=== PATIENT | female | born 1985 | race Caucasian/White ===

== ENCOUNTER 2018-03-23 13:01 | Inpatient (IN) | payer MEDICAID ==
[2018-03-23] MEDS: BETAMET NA PHOS/AC(6 MG/ML) 5ML INJ IM (14:10)
[2018-03-23] MEDS: LACTATED RINGER'S 1,000 ML IV (14:32)
[2018-03-23] MEDS: MAGNESIUM SULFATE 4 GM/100 ML 100 ML IV (15:05)
[2018-03-23] MEDS: MAGNESIUM SULFATE 20 GM/500 ML 500 ML IV (15:33)
[2018-03-24] MEDS: LACTATED RINGER'S 1,000 ML IV ×2 (01:32→14:50)
[2018-03-24] MEDS: MAGNESIUM SULFATE 20 GM/500 ML 500 ML IV ×3 (01:33→22:00)
[2018-03-24 01:38] LABS: MAGNESIUM 5.9 mg/dl (1.7-2.5)
[2018-03-24 07:27] LABS: MAGNESIUM 6.4 mg/dl (1.7-2.5)
[2018-03-24] MEDS: FERROUS SULFATE (EC) 325 MG TAB PO (09:43)
[2018-03-24] MEDS: PRENATAL VITAMIN PO (09:43)
[2018-03-24] MEDS: DOCUSATE SODIUM 100 MG CAP PO (09:43)
[2018-03-24] MEDS: BETAMET NA PHOS/AC(6 MG/ML) 5ML INJ IM (13:58)
[2018-03-24 14:58] LABS: MAGNESIUM 5.9 mg/dl (1.7-2.5)
[2018-03-24 18:32] LABS: MAGNESIUM 6.3 mg/dl (1.7-2.5)
[2018-03-24] MEDS: DIPHENHYDRAMINE 25 MG CAP PO (22:44)
[2018-03-25 01:50] LABS: MAGNESIUM 4.9 mg/dl (1.7-2.5)
[2018-03-25] MEDS: LACTATED RINGER'S 1,000 ML IV (04:14)
[2018-03-25] MEDS: PRENATAL VITAMIN PO (08:56)
[2018-03-25] MEDS: FERROUS SULFATE (EC) 325 MG TAB PO (08:56)
[2018-03-25] MEDS: DOCUSATE SODIUM 100 MG CAP PO (08:56)
[2018-03-25 12:20] LABS: MAGNESIUM 4.5 mg/dl (1.7-2.5)
[2018-03-25] MEDS: NIFEdipine 10 MG CAP PO (18:11)
[2018-03-25] MEDS: DIPHENHYDRAMINE 25 MG CAP PO (23:06)
[2018-03-26] MEDS: NIFEdipine 10 MG CAP PO ×3 (00:01→11:57)
[2018-03-26] MEDS: LACTATED RINGER'S 1,000 ML IV ×2 (04:25)
[2018-03-26] MEDS: DOCUSATE SODIUM 100 MG CAP PO (09:51)
[2018-03-26] MEDS: PRENATAL VITAMIN PO (09:51)
[2018-03-26] MEDS: FERROUS SULFATE (EC) 325 MG TAB PO (09:51)
[2018-03-26] MEDS ORDERED: ACETAMINOPHEN 325 MG TAB PO (17:30)
== END 2018-03-26 17:38 | disposition home or self-care (01) | DRG 778 ==
LOC: L-D 13:01 → PP1 03-25 20:10 → L-D 16:22
PROVIDERS: Obstetrics & Gynecology
DX: O60.03 Preterm labor without delivery, third trimester (principal); O26.879 Cervical shortening, unspecified trimester; Z3A.28 28 weeks gestation of pregnancy
CPT/HCPCS: 76816; 76817; 83735

== ENCOUNTER 2018-05-08 09:27 | Emergency (ER) | payer MEDICAID ==
[2018-05-08] MEDS: ACETAMINOPHEN 500 MG TAB PO (10:13)
== END 2018-05-08 10:27 | disposition home or self-care (01) ==
LOC: FTE 09:27
DX: O9A.213 Injury, poisoning and certain other consequences of external causes complicating pregnancy, third trimester (principal); S80.211A Abrasion, right knee, initial encounter; W01.0XXA Fall on same level from slipping, tripping and stumbling without subsequent striking against object, initial encounter; Y92.9 Unspecified place or not applicable; Z3A.34 34 weeks gestation of pregnancy
CPT/HCPCS: 99282; Z7502

== ENCOUNTER 2018-05-08 10:41 | Outpatient (CLI) | payer MEDICAID | END 2018-05-08 12:25 | disposition home or self-care (01) | LOC: OBT 10:41 → L-D 10:41 → OBT 12:25 | DX: O9A.213 Injury, poisoning and certain other consequences of external causes complicating pregnancy, third trimester (principal); S89.91XA Unspecified injury of right lower leg, initial encounter; Z3A.34 34 weeks gestation of pregnancy; W18.30XA Fall on same level, unspecified, initial encounter; Y93.89 Activity, other specified; Y92.89 Other specified places as the place of occurrence of the external cause; Y99.8 Other external cause status | CPT/HCPCS: 76818 ==

== ENCOUNTER 2018-06-13 10:08 | Inpatient (IN) | payer MEDICAID ==
[2018-06-13 11:54] LABS: ADD MAN DIFF? NO
[2018-06-13 11:59] LABS: WHITE BLOOD COUNT 11.3 10^3/ul (4.8-10.8)
[2018-06-13 11:59] LABS: BASOPHILS % 0.4 % (0.0-2.0); EOSINOPHILS # 0.1 10^3/ul (0.0-0.5); EOSINOPHILS % 0.4 % (0.0-7.0); HEMATOCRIT 38.2 % (37.0-47.0); HEMOGLOBIN 12.7 g/dl (12.0-16.0); LYMPHOCYTES # 2.1 10^3/ul (0.8-2.9); LYMPHOCYTES % 18.3 % (15.0-51.0); MEAN CORPUSCULAR HEMOGLOBIN 29.1 pg (29.0-33.0); MEAN CORPUSCULAR HGB CONC 33.2 g/dl (32.0-37.0); MEAN CORPUSCULAR VOLUME 87.6 fl (82.0-101.0); MEAN PLATELET VOLUME 10.8 fl (7.4-10.4); MONOCYTE # 0.6 10^3/ul (0.3-0.9); MONOCYTES % 5.1 % (0.0-11.0); NEUTROPHIL # 8.5 10^3/ul (1.6-7.5); NEUTROPHILS % 75.2 % (39.0-77.0); PLATELET COUNT 289 10^3/UL (140-415); RED BLOOD COUNT 4.36 10^6/ul (4.20-5.40); RED CELL DISTRIBUTION WIDTH 14.9 % (11.5-14.5)
[2018-06-13] MEDS ORDERED: METHYLERGONOVINE 0.2 MG INJ IM (12:00)
[2018-06-13] MEDS ORDERED: IBUPROFEN 600 MG TAB PO (12:00)
[2018-06-13] MEDS ORDERED: CARBOPROST 250 MCG INJ IM (12:00)
[2018-06-13] MEDS ORDERED: MISOPROSTOL 200 MCG TAB PR (12:00)
[2018-06-13] MEDS ORDERED: OXYTOCIN 30 UNITS/LR 500 ML IV ×2 (12:00)
[2018-06-13 12:20] LABS: INR 0.83; PROTIME 11.5 Sec (11.9-14.9); PT RATIO 0.9
[2018-06-13 12:21] LABS: PARTIAL THROMBOPLASTIN TIME 25.8 Sec (23.0-35.0)
[2018-06-13 12:59] LABS: HEPATITIS B SURFACE ANTIGEN NEGATIVE (NEGATIVE)
[2018-06-13 16:36] LABS: RAPID PLASMA REAGIN NONREACTIVE (NR)
[2018-06-13] MEDS: LACTATED RINGER'S 1,000 ML IV ×3 (18:39→23:02)
[2018-06-13 21:20] LABS: HIV 1&2 ANTIBODY NEGATIVE (NEGATIVE)
[2018-06-13] MEDS ORDERED: ONDANSETRON 4 MG INJ IV (22:30)
[2018-06-13] MEDS ORDERED: NALOXONE (0.4 MG/ML) INJ IV (22:30)
[2018-06-13] MEDS ORDERED: KETOROLAC 30 MG INJ IV (22:30)
[2018-06-13] MEDS ORDERED: DIPHENHYDRAMINE 50 MG INJ IV (22:30)
[2018-06-13] MEDS ORDERED: HYDROmorphONE 0.5 MG/0.5 ML SYG IV ×2 (22:30)
[2018-06-14] MEDS: LACTATED RINGER'S 1,000 ML IV ×3 (01:26→12:26)
[2018-06-14] MEDS: OXYTOCIN 30 UNITS/LR 500 ML IV ×4 (01:27→21:09)
[2018-06-14] MEDS: FENTAnyl 2MCG/ML-ROPIV 0.2% 100 ML BAG EPI ×2 (01:27→09:21)
[2018-06-14] MEDS: DEXTROSE 5%-LR 1,000 ML IV (05:17)
[2018-06-14] MEDS ORDERED: LIDOCAINE 1% (MPF) 30 ML INJ (10:21)
[2018-06-14] MEDS ORDERED: MINERAL OIL LIGHT 10 ML VIAL (10:44)
[2018-06-14] MEDS: MINERAL OIL LIGHT 10 ML VIAL TOP (11:00)
[2018-06-14] MEDS ORDERED: BUTORPHANOL 2 MG INJ (13:22)
[2018-06-14] MEDS: BUTORPHANOL 2 MG INJ IV (13:36)
[2018-06-14] MEDS: LIDOCAINE 1% (MPF) 30 ML INJ INJ (13:37)
[2018-06-14] MEDS: ACETAMINOPHEN 1000MG/100ML IV 100 ML IVPB (14:00)
[2018-06-14] MEDS ORDERED: ONDANSETRON 4 MG INJ IV (16:00)
[2018-06-14] MEDS ORDERED: ACETAMINOPHEN 325 MG TAB PO (16:00)
[2018-06-14] MEDS ORDERED: HYDROCODONE/APAP (5/325) TAB PO ×2 (16:00)
[2018-06-14] MEDS ORDERED: OXYCODONE/ASPIRIN (4.88/325) TAB PO (16:00)
[2018-06-14] MEDS: LANOLIN 7 GM TUBE TOP (16:22)
[2018-06-14] MEDS: WITCH HAZEL/GLYCERIN PAD PR (16:23)
[2018-06-14] MEDS: BENZOCAINE 20% 56 ML SPRAY TOP (16:23)
[2018-06-14] MEDS: OXYCODONE/ASPIRIN (4.88/325) TAB PO (16:25)
[2018-06-14] MEDS: IBUPROFEN 600 MG TAB PO (18:36)
[2018-06-14] MEDS: SENNA/DOCUSATE NA (8.6MG/50MG) TAB PO (21:08)
[2018-06-15] MEDS: IBUPROFEN 600 MG TAB PO ×4 (00:19→17:20)
[2018-06-15 08:42] LABS: ADD MAN DIFF? NO
[2018-06-15 08:49] LABS: BASOPHILS % 0.2 % (0.0-2.0); EOSINOPHILS # 0.1 10^3/ul (0.0-0.5); EOSINOPHILS % 0.5 % (0.0-7.0); HEMOGLOBIN 9.3 g/dl (12.0-16.0); LYMPHOCYTES # 2.1 10^3/ul (0.8-2.9); MEAN CORPUSCULAR HEMOGLOBIN 29.5 pg (29.0-33.0); MEAN CORPUSCULAR HGB CONC 33.2 g/dl (32.0-37.0); MEAN CORPUSCULAR VOLUME 88.9 fl (82.0-101.0); MEAN PLATELET VOLUME 11.3 fl (7.4-10.4); MONOCYTE # 0.9 10^3/ul (0.3-0.9); MONOCYTES % 5.1 % (0.0-11.0); NEUTROPHIL # 14.5 10^3/ul (1.6-7.5); NEUTROPHILS % 81.5 % (39.0-77.0); PLATELET COUNT 203 10^3/UL (140-415); RED BLOOD COUNT 3.15 10^6/ul (4.20-5.40); RED CELL DISTRIBUTION WIDTH 15.2 % (11.5-14.5)
[2018-06-15 08:49] LABS: WHITE BLOOD COUNT 17.8 10^3/ul (4.8-10.8)
[2018-06-15 09:21] LABS: RUBELLA ANTIBODY - IGM <20.00 AU/mL
[2018-06-15 10:06] LABS: RUBELLA ANTIBODY - IGG 7.48 index
[2018-06-15] MEDS: SENNA/DOCUSATE NA (8.6MG/50MG) TAB PO ×2 (10:55→22:16)
[2018-06-15] MEDS: OXYCODONE/ASPIRIN (4.88/325) TAB PO ×2 (11:03→22:24)
[2018-06-16] MEDS: IBUPROFEN 600 MG TAB PO ×3 (00:35→12:13)
[2018-06-16] MEDS: MEASLES,MUMPS,RUBELLA VACCINE INJ SC* (09:00)
[2018-06-16] MEDS: SENNA/DOCUSATE NA (8.6MG/50MG) TAB PO (09:01)
[2018-06-16] MEDS: BENZOCAINE 20% 56 ML SPRAY TOP (12:19)
[2018-06-16] MEDS: WITCH HAZEL/GLYCERIN PAD PR (12:19)
== END 2018-06-16 15:25 | disposition home or self-care (01) | DRG 807 ==
LOC: OBT 10:08 → PP1 06-14 15:42 → L-D 10:14 → OBT 11:28 → L-D 11:20
PROVIDERS: Obstetrics & Gynecology
PROC: 10E0XZZ Delivery of Products of Conception, External Approach (ICD-10-PCS; principal; 2018-06-13)
PROC: 0HQ9XZZ Repair Perineum Skin, External Approach (ICD-10-PCS; 2018-06-13)
PROC: 3E033VJ Introduction of Other Hormone into Peripheral Vein, Percutaneous Approach (ICD-10-PCS; 2018-06-13)
DX: O69.81X0 Labor and delivery complicated by cord around neck, without compression, not applicable or unspecified (principal); Z37.0 Single live birth; O70.0 First degree perineal laceration during delivery; Z3A.39 39 weeks gestation of pregnancy
CPT/HCPCS: 62319; 76815; 85025; 85610; 85730; 86592; 86703; 86762; 86850; 86900; 86901; 87340; 99464